=== PATIENT | female | born 1970 | race Caucasian/White ===

== ENCOUNTER 2019-05-28 07:11 | Inpatient (IN) | payer OTHER ==
[~2019-05-28] VITALS: Ht 160 cm; Wt 56.7 kg
--- NOTE | ~2019-05-28 | H ---
[address] [address] HISTORY AND PHYSICAL Name: KATIE DAWSON Room: [address] M.R.#: [id number] Admission: 05/28/19 Attend Phys: Charbel Adan Discharge: 05/30/19 Date of : 72 Report #: [id number] THIS REPORT FOR: //name// Please refer to the History and Physical performed in the physician's office. By: [id number] Records Staff WING /DIONISIO
[~2019-05-28 07:11] MED LIST: ADDERALL 30 MG30 MG PO; CIPRO250 M1 PO; IMITREX100 MG PO; IRON325 PO; NORCO 5-325 TA1 EAC1 PO; SENNA S TABLET1 EACH PO; TOPAMAX 100 MG100 MG PO; TYLENOL325 MG PO
[2019-05-28 12:33] LABS: HEMATOCRIT 35.9 % (37.0-47.0)
[2019-05-28 12:54] LABS: CALCIUM 9.7 mg/dL (8.5-10.1); CREATININE 1.9 mg/dL (0.6-1.3); POTASSIUM 3.7 mmol/L (3.5-5.1)
--- NOTE | 2019-05-28 13:19 | OP ---
[address] [address] OPERATIVE REPORT Name: KATIE DAWSON Room: [address] M.Hodan#: [id number] Admission: 05/28/19 Attend Phys: Charbel Adan Discharge: Date of : 72 Report #: [id number] THIS REPORT FOR: //name// CC: Héctor Floyd SURGEON: Aj Mueller MD PREOPERATIVE DIAGNOSIS: Large right kidney stone. POSTOPERATIVE DIAGNOSIS: Large right kidney stone. PROCEDURE: Percutaneous nephrostolithotomy. COMPLICATIONS: No complication. INDICATIONS: This is a 49-year-old white female with a history of very large right proximal ureteral stone. She underwent ureteroscopy without success presents now for percutaneous nephrostolithotomy. She understands risks of bleeding, infection and other procedures, cardiovascular and pulmonary complications. She also has a known ureteral stricture just below the UPJ that may be reactive from her stone or may be adherent to itself. The patient understands that she may need other procedures including ureteral stent or another procedure for stones. The kidney has been checked and is a viable kidney contributing about 40% of her renal function and is even though the patient desires a nephrectomy. I have encouraged her to try to undergo a stone procedure to try to relieve her ever pain and preserve the kidney function. DESCRIPTION OF PROCEDURE: Informed consent was obtained. The patient was sterilely prepped and draped in the prone position. She had already undergone percutaneous tube placement. We very carefully padded and draped to make sure her breast augmentation was not pushed on. The nurses took great care in getting that position. The tube was then accessed and injected with Conray and then a Super Stiff wire was placed through the excess tube into the bladder and then double lumen tube was placed and a secondary sensor wire was placed. The dilating balloon was then placed up to the kidney stone, which looked like it was still lodged just at the UPJ and then we were able to place the access sheath that were right down on the stone; however, the stone had quite a bit of mobility as the patient's renal pelvis was quite large. I did have to laura it in several different directions as there were no pockets really to trap it in order to use the shock pulse on and I was able to break it. Using the shock pulse, it is very hard dense black stone and it eventually did break into approximately 7 or 8 pieces. Each were about 6-7 mm in size and I was able to grab those with the Perc insert and extract those directly. She had several other smaller stones that were then vacuumed out and taken care with the shock pulse. I then looked diligently with the flexible [place] [id number] OPERATIVE REPORT Name: KATIE DAWSON Room: [address] MDayana#: [id number] Admission: 05/28/19 Attend Phys: Charbel Adan Discharge: Date of : 72 Report #: [id number] ureteroscope throughout all the calices that we could elucidate in the pyelogram pictures. There was no evidence of any other stones that were accessible. She did have multiple areas of submucosal dark black stones that were not accessible. This may account for a lot of what we see on her CAT scan imaging. At the end of the procedure then flexible ureteroscopy was carried out and I could not get the flexible ureteroscope to go down over the Super Stiff wire to try to get through the tight area in her ureter, so that, it was left uninvestigated as I could not get the scope down. Contrast was also difficult to push through that area, although we could get wires through there. Upon inspecting at the proximal portion and that it did look like inflammatory polyp type changes on the ureter and not true stricture. The [place] tip catheter was then placed, which with the tip sitting at the ureteropelvic junction and 2.5 mL in the balloon. It was then sewn in place at that position and then injected and it was shown to be well into the collecting system. There was minimal blood loss. The patient tolerated this well and was taken to recovery room in good condition. <ELECTRONICALLY SIGNED> By: Aj Mueller MD 05/28/19 1319 1221 [id number] Mueller MD /nt
[2019-05-28 15:47] VITALS: BP 140/87
[2019-05-28 20:00] VITALS: BP 120/76
[2019-05-28 23:45] VITALS: BP 113/76
[2019-05-29 04:00] VITALS: BP 107/69
[2019-05-29 04:21] LABS: HEMATOCRIT 33.1 % (37.0-47.0); HEMOGLOBIN 10.9 gm/dL (12.0-15.0); MCH 29.4 pg (26.0-34.0); MCHC 33.1 g/dL (28.0-37.0); MCV 88.7 fL (80.0-100.0); MPV 8.9 fl. (7.2-11.1); RBC 3.73 mil/uL (4.20-5.00); RDW-CV 14.6 % (10.5-14.5); WBC 10.8 thou/uL (4.0-11.0)
[2019-05-29 04:30] LABS: CALCIUM 8.7 mg/dL (8.5-10.1); CREATININE 1.5 mg/dL (0.6-1.3); POTASSIUM 3.8 mmol/L (3.5-5.1)
[2019-05-29 16:02] VITALS: BP 129/80
[2019-05-29 20:30] VITALS: BP 122/81
[2019-05-30 04:39] LABS: HEMATOCRIT 33.2 % (37.0-47.0); HEMOGLOBIN 10.9 gm/dL (12.0-15.0); MCH 29.4 pg (26.0-34.0); MCHC 32.9 g/dL (28.0-37.0); MCV 89.2 fL (80.0-100.0); MPV 9.3 fl. (7.2-11.1); RBC 3.72 mil/uL (4.20-5.00); RDW-CV 14.2 % (10.5-14.5); WBC 6.9 thou/uL (4.0-11.0)
[2019-05-30 04:48] LABS: CREATININE 1.4 mg/dL (0.6-1.3); POTASSIUM 4.1 mmol/L (3.5-5.1)
[2019-05-30 08:00] VITALS: BP 131/81
[2019-05-30] MEDS ORDERED: SENNA S TABLET1 EACH PO (17:04)
[2019-05-30] MEDS ORDERED: CIPRO500 M1 PO (17:05)
[2019-05-30 17:14] VITALS: BP 131/81
[2019-06-06 11:11] LABS: STONE CA OXALATE MONOHYDRATE 68 % (()); STONE CALCIUM PHOSPHATE 30 % (()); STONE COLOR Brown (()); STONE COMMENT Note: (()); STONE WEIGHT 1672.4 mg (())
== END 2019-05-30 17:55 | disposition home or self-care (01) | DRG 661 ==
LOC: M.TBA 07:11 → M.SUR 10:34 → EDSTATUS 10:37 → M.PRE 10:43 → M.3W 11:55 → M.PRE 12:29 → M.3W 15:27 → M.PRE 16:16 → M.3W 05-30 17:55
PROVIDERS: Nurse Practitioner Adult Health; ADMIT Urology
PROC: 0TC03ZZ Extirpation of Matter from Right Kidney, Percutaneous Approach (ICD-10-PCS; principal; 2019-05-28)
PROC: BT111ZZ Fluoroscopy of Right Kidney using Low Osmolar Contrast (ICD-10-PCS; 2019-05-29)
PROC: BT111ZZ Fluoroscopy of Right Kidney using Low Osmolar Contrast (ICD-10-PCS; 2019-05-30)
DX: N20.0 Calculus of kidney (principal); D64.9 Anemia, unspecified; Z79.899 Other long term (current) drug therapy

== ENCOUNTER 2020-04-09 11:03 | Emergency (ER) | payer OTHER ==
[~2020-04-09] VITALS: Ht 160 cm; Wt 56.7 kg
[~2020-04-09 11:03] MED LIST changes: +CIPRO500 M1 PO
[2020-04-09 12:09] LABS: ABSOLUTE BASOPHILS 0.1 thou/uL (0.0-0.2); ABSOLUTE EOSINOPHILS 0.3 thou/uL (0.0-0.7); ABSOLUTE LYMPHOCYTES 2.5 thou/uL (0.8-5.3); ABSOLUTE MONOCYTES 0.4 thou/uL (0.0-1.2); ABSOLUTE NEUTROPHILS 4.5 thou/uL (1.6-8.1); BASOPHILS 0.9 %; EOSINOPHILS 3.4 %; HEMATOCRIT 40.7 % (37.0-47.0); HEMOGLOBIN 13.7 gm/dL (12.0-15.0); LYMPHOCYTES 32.3 %; MCH 30.2 pg (26.0-34.0); MCHC 33.7 g/dL (28.0-37.0); MCV 89.5 fL (80.0-100.0); MONOCYTES 5.3 %; MPV 9.6 fl. (7.2-11.1); NUCLEATED RBCS 0 /100WBC; PLATELET COUNT* 183 thou/uL (150-400); POLYS 58.1 %; RBC 4.55 mil/uL (4.20-5.00); RDW-CV 13.4 % (10.5-14.5); WBC 7.7 thou/uL (4.0-11.0)
[2020-04-09 12:12] LABS: CALCIUM 9.2 mg/dL (8.5-10.1); POTASSIUM 3.6 mmol/L (3.5-5.1)
[2020-04-09 12:20] LABS: ALBUMIN 3.7 g/dL (3.4-5.0); TOTAL BILIRUBIN 0.2 mg/dL (<0.1-1.0); TOTAL PROTEIN 6.7 g/dL (6.4-8.2)
[2020-04-09] MEDS ORDERED: MEDROLDOSEPACK PO (12:49)
[2020-04-09 13:09] VITALS: BP 135/85
--- NOTE | 2020-04-10 09:31 | EKG ---
[place] [address] ELECTROCARDIOGRAM REPORT Name: SAMIRKATIE LEAL Room: [facility]#: [id number] Admission: 04/09/20 Attend Phys: Discharge: 04/09/20 Date of : 72 Date of Service: 04/09/20 1113 Report #: [id number] THIS REPORT FOR: //name// [facility] ED Test Date: 2020-04-09 Test Time: 11:13:25 Pat Name: KATIE DAWSON Department: Room: Gender: Wood Cabinet Finisher: ANNA : 1970 Requested By: Virginia Javed Order Number: [id number] Bethany MD: Corey Taylor Measurements Intervals [place] Rate: 87 P: 52 IN: 158 QRS: -33 QRSD: 93 T: 44 QT: 372 QTc: 448 Interpretive Statements Sinus rhythm Probable left atrial enlargement Left axis deviation Possible anterior infarct, age indeterminate Baseline wander in lead(s) III,aVL,aVF No previous ECG available for comparison Electronically Signed On 04-10-2020 9:31:19 CDT by Corey Taylor [email or web address] <ELECTRONICALLY SIGNED> By: Corey Taylor MD, [facility] 04/10/20 0931 1113 1113 Corey Taylor MD, [facility] /EPI
--- NOTE | 2020-04-10 09:31 | EKG ---
[place] [address] ELECTROCARDIOGRAM REPORT Name: SAMIRKATIE LEAL Room: [facility]#: [id number] Admission: 04/09/20 Attend Phys: Discharge: 04/09/20 Date of : 72 Date of Service: 04/09/20 1122 Report #: [id number] THIS REPORT FOR: //name// [facility] ED Test Date: 2020-04-09 Test Time: 11:22:03 Pat Name: KATIE DAWSON Department: Room: Gender: Reading Intervention Teacher: ANNA : 1970 Requested By: Virginia Javed Order Number: [id number] Bethany MD: Corey Taylor Measurements Intervals [place] Rate: 82 P: 63 FL: 159 QRS: -31 QRSD: 91 T: 43 QT: 371 QTc: 434 Interpretive Statements Sinus rhythm Probable left atrial enlargement Left axis deviation Probable anterior infarct, age indeterminate Baseline wander in lead(s) V3 Compared to ECG 04/09/2020 11:13:25 No significant changes Electronically Signed On 04-10-2020 9:31:28 CDT by Corey Taylor [email or web address] <ELECTRONICALLY SIGNED> By: Corey Taylor MD, [facility] 04/10/20 0931 1122 1122 Corey Taylor MD, [facility] /EPI
== END 2020-04-09 13:09 | disposition home or self-care (01) ==
LOC: M.ERS 11:03
PROVIDERS: Personal Emergency Response Attendant
DX: G51.0 Bell's palsy (principal); G43.909 Migraine, unspecified, not intractable, without status migrainosus; Z95.5 Presence of coronary angioplasty implant and graft; Z79.899 Other long term (current) drug therapy